=== PATIENT | male | born 1950 | race Caucasian/White ===

== ENCOUNTER 2021-05-12 18:36 | Inpatient (IN) | payer MEDICARE, MEDICAID ==
[~2021-05-12] VITALS: Ht 175.3 cm; Wt 62.1 kg
[2021-05-12] MEDS ORDERED: SODIUM CHLORIDE 0.9% 1000ML BAG (SEPSIS BOLUS) IV ONE (19:00)
[2021-05-12] MEDS ORDERED: VANCOMYCIN 1G PREMIX 200 ML IV SCH (19:00)
[2021-05-12] MEDS ORDERED: PIPERACILLIN/TAZOBACTAM 3.375GM/50ML PREMIX IV ONE (19:00)
[2021-05-12] MEDS ORDERED: PIPERACILLIN/TAZ 3.375G PREMIX 50 ML IV NR (19:15)
[2021-05-12 19:21] LABS: CHLORIDE 116 mEq/L (98-107)
[2021-05-12 19:30] LABS: CREATINE KINASE 63 IU/L (39-308)
[2021-05-12] MEDS ORDERED: POTASSIUM CHLORIDE INJ 40 MEQ in DEXT 5% WATER 250 ML IV ONE (21:15)
[2021-05-12] MEDS ORDERED: MAGNESIUM 2 G PREMIX 50 ML IV ONE (21:30)
[2021-05-12 21:31] LABS: BASOPHILS % 0.5 % (0.0-2.0); EOSINOPHILS % 1.3 % (0.0-5.0); HEMATOCRIT. 34.1 % (42.0-52.0); HEMOGLOBIN. 11.8 g/dL (14.0-18.0); LYMPHOCYTES % 45.1 % (20.0-50.0); MEAN CORPUSCULAR HEMOGLOBIN 32.4 pg (28.0-32.0); MEAN PLATELET VOLUME 7.5 fl (7.4-10.4); MONOCYTES % 10.9 % (2.0-8.0); NEUTROPHILS % 42.2 % (40.0-76.0); PLATELET 227 x1000/uL (130-400); RED BLOOD CELL COUNT 3.63 mill/uL (4.7-6.1); RED CELL DISTRIBUTION WIDTH 14.4 % (11.6-14.6)
[2021-05-12] MEDS ORDERED: KCL 20MEQ/100ML X 2 FOR TOTAL KCL 40MEQ/200ML IV SCH (22:00)
[2021-05-13] MEDS ORDERED: DOCUSATE SODIUM 100MG CAPSULE PO PRN (00:30)
[2021-05-13] MEDS ORDERED: ONDANSETRON HCL 4MG/2ML INJ IV PRN (00:30)
[2021-05-13] MEDS ORDERED: GUAIFENESIN 200MG/10ML SUGAR FREE UDC PO PRN (00:30)
[2021-05-13] MEDS ORDERED: IPRATROPIUM/ALBUTEROL 0.5-3(2.5)MG/3ML NEB HHN PRN (00:30)
[2021-05-13] MEDS ORDERED: DEXT 5%/LACTATED RINGERS 1,000 ML IV ONE (00:30)
[2021-05-13] MEDS ORDERED: CEFTRIAXONE 1 G PREMIX 50 ML IV SCH (00:30)
[2021-05-13] MEDS: CEFTRIAXONE 1,000 MG in DEXTROSE 5% WATER 50 ML IV SCH (01:00)
[2021-05-13] MEDS ORDERED: VANCOMYCIN 750MG PREMIX 150 ML IV SCH (08:00)
[2021-05-13 10:30] VITALS: BP_SYST 126; BP_DIAS 47; BP_DIAS 49
[2021-05-13 11:12] LABS: BASOPHILS % 0.4 % (0.0-2.0); EOSINOPHILS % 0.2 % (0.0-5.0); HEMATOCRIT. 34.7 % (42.0-52.0); LYMPHOCYTES % 18.7 % (20.0-50.0); MEAN CORPUSCULAR HEMOGLOBIN 32.4 pg (28.0-32.0); MEAN CORPUSCULAR VOLUME 93.4 fL (80.0-94.0); MEAN PLATELET VOLUME 7.9 fl (7.4-10.4); MONOCYTES % 9.3 % (2.0-8.0); NEUTROPHILS % 71.4 % (40.0-76.0); PLATELET 242 x1000/uL (130-400); RED BLOOD CELL COUNT 3.71 mill/uL (4.7-6.1)
[2021-05-13 11:19] LABS: CHLORIDE 107 mEq/L (98-107)
[2021-05-13] MEDS: ENOXAPARIN 40MG/0.4ML SYR SUBCUT SCH (11:58)
[2021-05-13] MEDS: VANCOMYCIN 750 MG in DEXT 5% WATER 250 ML IV SCH ×2 (11:59→21:16)
[2021-05-13 12:00] VITALS: BP 146/80
[2021-05-13 16:00] VITALS: BP 174/79
[2021-05-13] MEDS ORDERED: HYDRALAZINE 20MG/ML VIAL IV PRN (18:45)
[2021-05-13 20:00] VITALS: BP 150/85
[2021-05-13] MEDS: ATORVASTATIN CALCIUM 20MG TABLET PO SCH (21:16)
[2021-05-14] VITALS: BP 125/95
[2021-05-14] MEDS ORDERED: FINA5TAB3 PO (00:34)
[2021-05-14] MEDS ORDERED: BISA10SU62 RC (00:34)
[2021-05-14] MEDS ORDERED: BUSP10TA4 PO (00:34)
[2021-05-14] MEDS ORDERED: ASCO500C18 PO (00:34)
[2021-05-14] MEDS ORDERED: TOPUD PO (00:34)
[2021-05-14] MEDS ORDERED: LORA-250 PO (00:34)
[2021-05-14] MEDS ORDERED: ASPI81TA47 PO (00:34)
[2021-05-14] MEDS ORDERED: BACL-141 PO (00:34)
[2021-05-14] MEDS ORDERED: DIVA500T3 PO (00:34)
[2021-05-14] MEDS ORDERED: DOCU-138 PO (00:34)
[2021-05-14] MEDS ORDERED: PROT40 PO (00:42)
[2021-05-14] MEDS ORDERED: MELA5TAB19 PO (00:42)
[2021-05-14] MEDS ORDERED: METO25TA6 PO (00:42)
[2021-05-14] MEDS ORDERED: TAMS-11 PO (00:42)
[2021-05-14] MEDS ORDERED: DES150 PO (00:42)
[2021-05-14] MEDS ORDERED: ESCI20TA PO (00:42)
[2021-05-14] MEDS ORDERED: TUSSL PO (00:42)
[2021-05-14] MEDS ORDERED: MOM MT (00:42)
[2021-05-14] MEDS: CEFTRIAXONE 1,000 MG in DEXTROSE 5% WATER 50 ML IV SCH (01:47)
[2021-05-14 04:00] VITALS: BP 156/87
[2021-05-14 08:00] VITALS: BP 158/69
[2021-05-14] MEDS: OMEPRAZOLE 20MG CAPSULE EXTENDED RELEASE PO SCH (09:00)
[2021-05-14] MEDS: ENOXAPARIN 40MG/0.4ML SYR SUBCUT SCH (09:00)
[2021-05-14] MEDS: ASPIRIN 81MG TABLET PO SCH (09:01)
[2021-05-14] MEDS: BUSPIRONE HCL 10MG TABLET PO SCH ×3 (09:01→17:08)
[2021-05-14] MEDS: AMLODIPINE 5MG TABLET PO SCH (10:42)
[2021-05-14 12:00] VITALS: BP 157/53
[2021-05-14] MEDS: VANCOMYCIN 1GM PMX (XELLIA) 200 ML IV SCH ×2 (13:03→21:22)
[2021-05-14 16:00] VITALS: BP 112/63
[2021-05-14 20:00] VITALS: BP 127/67
[2021-05-14] MEDS: TAMSULOSIN HCL 0.4MG SR CAPSULE PO SCH (21:23)
[2021-05-14] MEDS: ATORVASTATIN CALCIUM 20MG TABLET PO SCH (21:23)
[2021-05-14] MEDS: BACLOFEN 10MG TABLET PO PRN (21:23)
[2021-05-15] VITALS: BP 129/64
[2021-05-15] MEDS: ACETAMINOPHEN 325MG TABLET PO PRN ×2 (00:50→23:11)
[2021-05-15] MEDS: CEFTRIAXONE 1,000 MG in DEXTROSE 5% WATER 50 ML IV SCH (00:50)
[2021-05-15 04:00] VITALS: BP 95/58
[2021-05-15] MEDS: OMEPRAZOLE 20MG CAPSULE EXTENDED RELEASE PO SCH (05:56)
[2021-05-15 06:53] LABS: CHLORIDE 106 mEq/L (98-107)
[2021-05-15 08:00] VITALS: BP 120/59
[2021-05-15] MEDS: ENOXAPARIN 40MG/0.4ML SYR SUBCUT SCH (09:30)
[2021-05-15] MEDS: AMLODIPINE 5MG TABLET PO SCH (09:31)
[2021-05-15] MEDS: BUSPIRONE HCL 10MG TABLET PO SCH ×3 (09:31→17:29)
[2021-05-15] MEDS: ASPIRIN 81MG TABLET PO SCH (09:31)
[2021-05-15] MEDS: VANCOMYCIN 1GM PMX (XELLIA) 200 ML IV SCH ×2 (09:32→23:12)
[2021-05-15 12:00] VITALS: BP 121/62
[2021-05-15 16:00] VITALS: BP 149/94
[2021-05-15 20:00] VITALS: BP 126/92
[2021-05-15] MEDS ORDERED: LORAZEPAM 0.5MG TABLET PO NR (21:15)
[2021-05-15] MEDS: ATORVASTATIN CALCIUM 20MG TABLET PO SCH (21:51)
[2021-05-15] MEDS: TAMSULOSIN HCL 0.4MG SR CAPSULE PO SCH (21:51)
[2021-05-15] MEDS: BACLOFEN 10MG TABLET PO PRN (23:11)
[2021-05-16] VITALS: BP 110/54
[2021-05-16] MEDS: CEFTRIAXONE 1,000 MG in DEXTROSE 5% WATER 50 ML IV SCH (02:11)
[2021-05-16] MEDS ORDERED: FAMOTIDINE 20MG TABLET PO SCH (06:45)
[2021-05-16 07:36] LABS: CHLORIDE 106 mEq/L (98-107)
[2021-05-16 08:00] VITALS: BP 120/76
[2021-05-16] MEDS: ENOXAPARIN 40MG/0.4ML SYR SUBCUT SCH (08:18)
[2021-05-16] MEDS: AMLODIPINE 5MG TABLET PO SCH (08:19)
[2021-05-16] MEDS: BUSPIRONE HCL 10MG TABLET PO SCH ×2 (08:19→14:09)
[2021-05-16] MEDS: ASPIRIN 81MG TABLET PO SCH (08:19)
[2021-05-16] MEDS: VANCOMYCIN 1GM PMX (XELLIA) 200 ML IV SCH (10:30)
[2021-05-16 12:00] VITALS: BP 115/68
[2021-05-16 12:54] VITALS: BP 115/69
== END 2021-05-16 15:30 | DRG 70 ==
LOC: ER 18:36 → MICUSO 23:42 → 5WST 05-13 08:14
PROVIDERS: ADMIT Internal Medicine; ATTEND Internal Medicine
DX: G93.41 Metabolic encephalopathy (principal); R65.11 Systemic inflammatory response syndrome (SIRS) of non-infectious origin with acute organ dysfunction; I95.89 Other hypotension; G82.20 Paraplegia, unspecified; E87.6 Hypokalemia; E78.00 Pure hypercholesterolemia, unspecified; I10 Essential (primary) hypertension; J44.9 Chronic obstructive pulmonary disease, unspecified; Z20.822 Contact with and (suspected) exposure to COVID-19; E78.5 Hyperlipidemia, unspecified; D64.9 Anemia, unspecified; R00.1 Bradycardia, unspecified; Z86.73 Personal history of transient ischemic attack (TIA), and cerebral infarction without residual deficits; Z87.891 Personal history of nicotine dependence; Z88.5 Allergy status to narcotic agent; Z88.8 Allergy status to other drugs, medicaments and biological substances
CPT/HCPCS: 36415; 71045; 80048; 80053; 80202; 82550; 83605; 83735; 83880; 84145; 84439; 84443; 84484; 85025; 87426; 93005; 99291; J0360; J0696; J1650; J2543; J3370; J3475; J3480; J7030; J7040; J7060